=== PATIENT | female | born 1960 | race Caucasian/White ===

== ENCOUNTER 2018-07-05 12:01 | Emergency (ER) | payer OTHER ==
[~2018-07-05] VITALS: Ht 160 cm; Wt 62.3 kg
[2018-07-05 12:36] VITALS: BP 157/79
== END 2018-07-05 12:43 | disposition home or self-care (01) | DRG 605 ==
LOC: ED 12:01
DX: S00.01XA Abrasion of scalp, initial encounter (principal); M32.9 Systemic lupus erythematosus, unspecified; W22.8XXA Striking against or struck by other objects, initial encounter; Y92.830 Public park as the place of occurrence of the external cause